=== PATIENT | male | born 2000 | race Caucasian/White ===

== ENCOUNTER 2024-04-09 18:10 | Emergency (ER) | payer SELFPAY ==
[~2024-04-09] VITALS: Ht 182.9 cm; Wt 90.9 kg
[2024-04-09 18:24] VITALS: TEMP 98.8
[2024-04-09] MEDS ORDERED: Ketorolac 15 MG/ML VIAL IM ONE (19:00)
[2024-04-09 21:24] VITALS: BP 141/90; PULSE 80
== END 2024-04-09 21:24 | disposition home or self-care (01) ==
LOC: COL.ER 18:10
DX: S43.102A Unspecified dislocation of left acromioclavicular joint, initial encounter (principal); W20.8XXA Other cause of strike by thrown, projected or falling object, initial encounter
CPT/HCPCS: J1885